=== PATIENT | male | born 1960 | race Hispanic/Latino ===

== ENCOUNTER 2016-11-22 11:08 | Day surgery (SDC) | payer BC, OTHER ==
[~2016-11-22 11:08] MED LIST: ANCEF/STERILE WATER 2 GM/20 ML IV NR
[2016-11-22 12:39] LABS: INR 2.45 (0.87-1.13)
[2016-11-22 12:40] LABS: Partial Thromboplastin Time 43.3 Sec. (24.2-36.6)
[2016-11-22] MEDS ORDERED: PERCOCET 5/325 PO PRN (12:51)
[2016-11-22] MEDS ORDERED: MORPHINE IV PRN (12:51)
[2016-11-22] MEDS ORDERED: ZOFRAN IV PRN (12:51)
--- NOTE | 2016-11-22 12:51 | Anesthesia Day of Surgery ---
Anesthesia Day of Surgery - Day of Surgery Patient Examined: Yes Patient H&P Reviewed: Yes Patient is NPO: Yes
--- NOTE | 2016-11-22 12:53 | Anesthesia Consultation ---
Anesthesia Consult and Med Hx Date of service: 11/22/16 - Airway Anesthetic Teeth Evaluation: Good ROM Head & Neck: Adequate Mental/Hyoid Distance: Adequate Mallampati Class: Class II Intubation Access Assessment: Probably Good - Pulmonary Exam CTA: Yes - Pre-Operative Health Status ASA Pre-Surgery Classification: ASA3 Proposed Anesthetic Plan: General - Pulmonary Hx Smoking: Yes (quit 20 yrs ago) Hx Asthma: No Hx Sleep Apnea: No - Cardiovascular System Hx Hypertension: Yes (RECENTLY DIAGNOSED 2015) Hx Peripheral Vascular Disease: Yes (h/o DVT on Warfarin, INR 2.45, Dr. Mcneill made aware) - Central Nervous System Hx Seizures: No CVA: No Hx Psychiatric Problems: No - Gastrointestinal Hx Ulcer: (Chron's Dz) Hx Gastroesophageal Reflux Disease: No - Endocrine Hx Renal Disease: (kidney stones) Hx Liver Disease: No Hx Non-Insulin Dependent Diabetes: No Hx Thyroid Disease: No Hx Hypothyroidism: No - Other Systems Hx Alcohol Use: Yes Hx Substance Use: No Hx Cancer: No Hx Obesity: No
[2016-11-22] MEDS ORDERED: PEPCID IV NR (13:00)
[2016-11-22] MEDS ORDERED: DILAUDID IV NR (13:00)
[2016-11-22] MEDS ORDERED: NACL 0.9% 1000 ML 1,000 ML IV SCH (13:00)
[2016-11-22] MEDS ORDERED: REGLAN IV NR (13:00)
[2016-11-22] MEDS ORDERED: VERSED IV NR (13:00)
[2016-11-22] MEDS ORDERED: PEPCID PO NR (13:00)
[2016-11-22] MEDS ORDERED: XYLOCAINE MPF 2% ONE (13:10)
[2016-11-22] MEDS ORDERED: SUBLIMAZE ONE (13:11)
[2016-11-22] MEDS ORDERED: DIPRIVAN 10 MG/ML IV ONE (13:11)
--- NOTE | 2016-11-22 13:20 | Post Operative Note ---
Date of procedure: 11/22/16 Pre-op diagnosis: left pain and ureteral stone Post-op diagnosis: same Findings: as above Procedure: cysto L j stent Anesthesia: GETA Surgeon: MARITZA LOPEZ Estimated blood loss: none Pathology: none Condition: stable Disposition: PACU
--- NOTE | 2016-11-22 13:22 | Discharge Summary ---
Short Stay Discharge Plan Activity: other (no straining ) Weight Bearing Status: Full Weight Bearing Diet: low fat, low cholesterol, low salt Special Instructions: other (inc fluids ) Durable Medical Equipment Needed Upon Discharge: other (has j stent ) Follow up with: PRIMARY CARE, [Primary Care Provider] - 7 Days MARITZA LOPEZ MD [Staff Physician] - 7 Days
[2016-11-22] MEDS ORDERED: ePHEDrine SULFATE ONE (13:44)
[2016-11-22] MEDS ORDERED: LASIX ONE (13:53)
[2016-11-22] MEDS ORDERED: ZOFRAN ONE ×2 (13:56→13:57)
[2016-11-22] MEDS ORDERED: DECADRON ONE (13:56)
--- NOTE | 2016-11-22 14:20 | Post Anesthesia Evaluation ---
- Post Anesthesia Evaluation Patient Participated: Yes Airway Patent: Yes Stable Respiratory Function: Yes Nausea/Vomiting: No Temp > 96.8F: Yes Pain Manageable: Yes Adequeate Hydration: Yes Anesthesia Complications: No
--- NOTE | 2016-11-22 15:07 | Operative Report ---
PREOPERATIVE DIAGNOSES: Large left distal ureteral stone with severe pain. POSTOPERATIVE DIAGNOSES: Large left distal ureteral stone with severe pain, with very high INR. PROCEDURE: Cystoscopy, left stent, staged procedure. SURGEON: Harry Mcneill MD ANESTHESIA: General. FINDINGS: This is a gentleman who presented with severe pain. He has a distal ureteral stone about 8-9 mm. We were planning to do lithotripsy, ureteroscopy, but his INR was almost 2.5. He has had a history of deep vein thrombosis. We told him that because of the INR, we did not feel comfortable doing lithotripsy and if it was over 2, we would just stage . DESCRIPTION OF PROCEDURE: The patient was brought to the operating room and placed on the operating table. Following induction of anesthesia, placed in lithotomy position, prepped and draped in usual sterile fashion. Cystourethroscopy showed a slightly enlarged prostate. No bladder tumors. Bladder was well visualized with 30-and 70-degree lenses. There was a little oozing from the prostate which was expected and a retrograde showed the stone in the lower ureter. A wire coiled in the kidney. We placed a 6-Nepali double J coiled in the kidney and bladder. The patient tolerated the procedure well. There was minimal bleeding. We did not want to take a chance. I talked to his and the patient. He was brought to recovery in stable condition for staged procedure for followup ureteroscopy and laser after the INR is improved. 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 JOB# [id number] NAHID/LAUREN
[2016-11-22 15:46] VITALS: BP 126/67
--- NOTE | 2016-11-22 21:26 | Admit Criteria Form ---
Admission Criteria Documentation: AMBULATORY SURGERY EXCEPTION CRITERIA Ambulatory Surgery Exception Criteria ( Place 'X' for any and all applicable criteria): Surgery or procedure performed on ambulatory basis may require inpatient stay for[A] ANY ONE of the following(1)(2)(3)(4)(5)(6)(7)(8)(9): [X] I. A preoperative situation, condition, or finding that warrants inpatient stay as indicated by ANY ONE of the following: [] a) Inpatient care needed because of severity of a disease or condition rather than the surgery (eg, severe cardiac or respiratory disease, severe infection) (15) (16 ) (17) (18) [] b) Emergent procedure (eg, angioplasty for acute ischemia)(19) [] c) Complex surgical approach or situation as indicated by ANY ONE of the following(3): [] i) Open approach needed instead of usual endoscopic, transcatheter, or other less invasive procedure [] ii) Difficult approach because of previous operation [] iii) Airway monitoring required after open neck procedures(20)(21) [] iv) Large mass requiring unusually extensive dissection [] v) Additional complicating feature requiring inpatient care (eg, drain management)(22(23): [X] d) Major surgery in a pt with high anesthetic risk as indicated by ANY ONE of the following (2)(3)(5)(7)(8): [X] i) ASA risk class III or higher (severe systemic disease impairing function) [D] [] ii) Advanced age (eg, older than 85 years)(14)(24) [] iii) Symptomatic heart failure(25) [] iv) Symptomatic asthma or COPD(8)(21) [] v) Morbid obesity with hemodynamic or respiratory problems(20)( 21)(26)(27) [] vi) Obstructive sleep apnea(20)(21) [] vii) Former premature infants who are younger than 60 weeks [] viii) High risk for severe postoperative abnormalities (eg, severe postoperative hypocalcemia after parathyroidectomy for severe hyperparathyroidism)(27)( 28) [] ix) Unstable angina(25) [] e) Drug-related risk requiring inpatient stay as indicated by ANY ONE of the following(5)(10)(14)(32)(33) [] i) Procedure requires discontinuing drugs or other therapy (eg , antiarrhythmic medication, antiseizure medication), which necessitates inpatient observation or treatment.(18)(31) [] ii) Major surgery and high risk drug use as indicated by ANY ONE of the following: [] 1) Active abuse of cocaine or similar drug [] 2) Monoamine oxidase inhibitor use [] 3) Other drug identified as posing risk [] f) Inadequate outpatient care situation as indicated by ANY ONE of the following(5)(10)(14)(32)(33) [] i) Patient lives remote from medical facility and procedure has urgent complication potential, and temporary nearby residence cannot be arranged [] ii) Patient will have postprocedure incapacitation and inadequate assistance at home, or alternative level of care cannot be arranged. [] iii) Patient will have long general anesthesia or procedure side effect resolution time, and competent person to stay with patient on first postoperative night at home or alternative level of care cannot be arranged. []iv) Other inadequate outpatient situation that cannot be handled by other means [] II. A perioperative event, condition, or finding that warrants inpatient stay as indicated by ANY ONE of the following (1)(2)(3): [] a) Inadequate physiologic recovery: cardiovascular, respiratory, or hemodynamic status not normal or near preoperative baseline(18) [] b) Hemodynamic instability [] c) Patient not alert with near normal or baseline mental status [] d) Temperature not normal or as expected and not appropriate for outpatient treatment of condition [] e) Ambulatory or appropriate activity level status not yet achieved post procedure [E](34)(35)(36) [] f) Operative site not appropriate (eg, unexpected or excessive drainage or bleeding) [] g) Postoperative effects not resolved or adequately managed (eg, significant pain or vomiting not appropriate for outpatient or next level of care)(10)(12) [] h) Complicating features requiring inpatient care as indicated by ANY ONE of the following(37): [] i) Severe complications of procedure (eg, bowel injury, airway compromise, vascular injury,severe hemorrhage) [] ii) Extensive (eg, dissection far beyond usual scope of procedure ) or prolonged (eg, 120 minutes beyond usual) surgery needed requiring inpatient postoperative care [] iii) Conversion to an open or complex procedure that requires inpatient care (eg, open vs laparoscopic cholecystectomy, abdominal vs vaginal hysterectomy)(38) [] iv) Comorbid condition or test result identified during or post procedure that requires inpatient care (7) [] v) Malignant hyperthermia(30) [] vi) Other complicating feature requiring inpatient care(22)(23) Inpatient stay may be needed until ALL of the following are present (1)(2)(3)(4) (5)(6)(10)(14)(33)(40): []a) Physiologic recovery: cardiovascular, respiratory, and hemodynamic status normal or near preoperative baseline []b) Hemodynamic stability []c) Patient alert, with near normal or baseline mental status []d) Temperature appropriate: patient afebrile or temperature appropriate for outpt treatment of condition []e) Activity level appropriate: ambulatory or appropriate activity level post procedure []f) Operative site appropriate as indicated by ALL of the following: []i) Site dry or with expected drainage []ii) Any blood noted is as expected for procedure. []g) Postoperative effects resolved or managed as indicated by ALL of the following: []i) Pain management appropriate for outpatient (or next level of) care(10) []ii) Minimal nausea and vomiting: if present, successfully treated with oral medication(12) []iii) Headache, dizziness, or drowsiness (if present) are mild. []h) Voiding status acceptable as indicated by ANY ONE of the following: []i) Voiding spontaneously []ii) No voiding but instructions given for follow-up in 6 to 8 hours []iii) Urinary catheter in place, and instructions given for follow-up []i) Complicating features requiring inpatient care manageable at a lower level of care(37) []j) Comorbid conditions manageable at a lower level of care(37) The original [employer] content created by [employer] has been revised. The portions of the content which have been revised are identified through the use of italic text or in bold, and [facility] [employer] has neither reviewed nor approved the modified material. All other unmodified content is copyright [employer]. Please see references footnoted in the original [employer] edition 2016 Admission Criteria Met: Yes
--- NOTE | 2016-11-23 14:50 | Fluoroscopy Report ---
FLUORO RETROGRADE UROGRAPHY INDICATION: Calculus of left kidney. COMPARISON: 09/28/2015. FINDINGS: 5 fluoroscopic images submitted. Images 1 and 2 likely superintendent local and suggests multiple, at least four left renal calculi measuring up to approximately 1 cm as also somewhat elongated, approximately 0.8 cm left hemipelvic calcification suspicious for left distal ureteral calculus as noted on 10/08/2005 CT. Ascending colon stool. Mild lumbar degenerative changes with L3-L4 disc narrowing. Subsequentially, left ureter cannulized and retrograde opacified with partial obstruction about the level of the left distal ureteral calculus with its smaller caliber beyond to the bladder base noted. Left proximal to mid visualized ureter appears unremarkable. Mild intrarenal collecting system fullness not entirely excluded. Final two images demonstrate placement of a left double-J ureteral stent with normal radiographic appearance. CONCLUSION: Intraoperative fluoroscopic assistance provided with various findings, as described. Please correlate. Thank you for the opportunity to participate in this patient's care.
== END 2016-11-22 16:05 | disposition home or self-care (01) ==
LOC: OR 11:08
PROVIDERS: ATTEND Urology
DX: N20.1 Calculus of ureter (principal); I10 Essential (primary) hypertension; N40.0 Benign prostatic hyperplasia without lower urinary tract symptoms; Z86.718 Personal history of other venous thrombosis and embolism; Z87.891 Personal history of nicotine dependence; Z87.19 Personal history of other diseases of the digestive system; Z72.89 Other problems related to lifestyle; Z79.01 Long term (current) use of anticoagulants
CPT/HCPCS: 36415; 52332; 74420; 85610; 85730; C1726; C1758; C1769; C2617; J0690; J1100; J1170; J1940; J2250; J2405; J2704; J2765; J3010; J7030; Q9967

== ENCOUNTER 2016-12-17 07:50 | Day surgery (SDC) | payer BC ==
--- NOTE | 2016-11-30 11:32 | Anesthesia Consultation ---
Anesthesia Consult and Med Hx - Pre-Operative Health Status Proposed Anesthetic Plan: General - Pulmonary Hx Smoking: Yes (quit 20 yrs ago) Hx Asthma: No Hx Sleep Apnea: No - Cardiovascular System Hx Hypertension: Yes (RECENTLY DIAGNOSED 2015) Hx Peripheral Vascular Disease: Yes (h/o DVT on Warfarin, INR 2.45, Dr. Mcneill made aware) - Central Nervous System Hx Seizures: No CVA: No Hx Psychiatric Problems: No - Gastrointestinal Hx Ulcer: No (Crohn's dz) Hx Gastroesophageal Reflux Disease: No - Endocrine Hx Renal Disease: (kidney stones) Hx Liver Disease: No Hx Non-Insulin Dependent Diabetes: No Hx Thyroid Disease: No Hx Hypothyroidism: No - Other Systems Hx Alcohol Use: Yes Hx Substance Use: No Hx Cancer: No Hx Obesity: No
[2016-12-14 12:21] LABS: Basophils % (Auto) 0.6 % (0.0-1.8); Eosinophils % (Auto) 1.4 % (0.0-4.3); Hematocrit 42.9 % (35.5-45.6); Hemoglobin 14.5 gm/dl (11.8-15.2); Mean Corpuscular HGB Conc 34 % (32-34); Mean Corpuscular Hemoglobin 32 pg (28-32); Mean Corpuscular Volume 93 fl (84-94); Platelet Count 220 K/mm3 (140-440); Red Cell Distribution Width 13.8 % (13.2-15.2); White Blood Count 4.6 K/mm3 (4.5-11.0)
[2016-12-14 12:30] LABS: INR 1.04 (0.87-1.13)
[2016-12-14 12:35] LABS: Alanine Aminotransferase 26 units/L (7-56); Albumin 4.1 g/dL (3.9-5); Albumin/Globulin Ratio 1.4 %; Alkaline Phosphatase 63 units/L (35-129); Anion Gap 18 mmol/L; BUN/Creatinine Ratio 16.66; Bilirubin,Total 0.6 mg/dL (0.1-1.2); Blood Urea Nitrogen 15 mg/dL (9-20); Calcium 9.3 mg/dL (8.4-10.2); Carbon Dioxide 22 mmol/L (22-30); Chloride 101.5 mmol/L (98-107); Glucose 106 mg/dL (75-100); Potassium 3.8 mmol/L (3.6-5.0); Sodium 138 mmol/L (137-145); Total Protein 7.1 g/dL (6.3-8.2)
[~2016-12-17 07:50] MED LIST changes: -ANCEF/STERILE WATER 2 GM/20 ML IV NR; +NACL 0.9% 1000 ML 1,000 ML IV SCH; +PEPCID IV NR; +VERSED IV NR
[2016-12-17] MEDS ORDERED: SUBLIMAZE IV PRN (09:08)
--- NOTE | 2016-12-17 09:21 | Anesthesia Day of Surgery ---
Anesthesia Day of Surgery - Day of Surgery Patient Examined: Yes (large roche) Patient H&P Reviewed: Yes Patient is NPO: Yes Beta Blockers: No Cardiac Clearance: No Pulmonary Clearance: No
[2016-12-17] MEDS ORDERED: ZOFRAN IV PRN (09:42)
[2016-12-17] MEDS ORDERED: NACL BACTERIOSTATIC INFILTRATI ONE (09:56)
[2016-12-17] MEDS ORDERED: NACL 0.9% 1000 ML 1,000 ML IV SCH (10:00)
[2016-12-17] MEDS ORDERED: XYLOCAINE MPF 2% ONE (10:14)
[2016-12-17] MEDS ORDERED: SUBLIMAZE ONE (10:14)
[2016-12-17] MEDS ORDERED: VERSED ONE (10:14)
[2016-12-17] MEDS ORDERED: DIPRIVAN 10 MG/ML IV ONE (10:15)
[2016-12-17] MEDS ORDERED: ANCEF/STERILE WATER 2 GM/20 ML IV NR (11:00)
[2016-12-17] MEDS ORDERED: OMNIPAQUE 300 MG/50 ML (CATH LAB) IV ONE (11:42)
[2016-12-17] MEDS ORDERED: WATER FOR IRRIG STERILE IR ONE (11:42)
[2016-12-17] MEDS ORDERED: ZOFRAN ONE (12:05)
[2016-12-17] MEDS ORDERED: ROBINUL ONE (12:43)
--- NOTE | 2016-12-17 12:57 | Operative Report ---
PREOPERATIVE DIAGNOSIS: Left distal large ureteral stone, approximately 7-8 mm with previously on Coumadin and high dose of Coumadin. POSTOPERATIVE DIAGNOSIS: Left distal large ureteral stone, approximately 7-8 mm with previously on Coumadin and high dose of Coumadin. PROCEDURE: Cystoscopy, left retrograde, left ureteroscopic laser, treatment of stone, extraction of stones. SURGEON: Harry Mcneill MD ANESTHESIA: General. FINDINGS: This is a gentleman with a large stone, he was on Coumadin. We placed a stent to get him out of pain and nausea. He now presents for treatment. DESCRIPTION OF PROCEDURE: The patient was brought to the operating room and placed on the operating table. Following induction of anesthesia, placed in lithotomy position, prepped and draped in usual sterile fashion. A stent was extracted from the meatus. A wire coiled in the kidney. At this point, we set up to laser, the wire came back down. We replaced the wire in good position and ureteroscopy showed the stone. The stone was too large to grasp. We tried to grasping it, too big, we broken it into about 7 pieces. Each piece was removed and left in the bladder at the end of the procedure. A 6-Hebrew double J coiled in the kidney and bladder. Retrograde showed good positioning of the stent. The patient tolerated the procedure well. Family was given the stone and was brought to recovery in stable condition. JOB# [id number] NAHID/LAUREN
--- NOTE | 2016-12-17 13:01 | Post Operative Note ---
Date of procedure: 12/17/16 Pre-op diagnosis: ureteral stone Post-op diagnosis: same Findings: 7mm stone Procedure: cysto laser ureteroscopy Anesthesia: LEAHA Surgeon: MARITZA LOPEZ Estimated blood loss: minimal Pathology: list (stone) Specimen disposition: given to patient/family Condition: stable Disposition: PACU
--- NOTE | 2016-12-17 13:03 | Discharge Summary ---
Short Stay Discharge Plan Activity: other (no straining ) Weight Bearing Status: Full Weight Bearing Diet: regular, low fat, low salt Special Instructions: other (do not pull string ) Follow up with: TRENT SCHROEDER JR, MD [Primary Care Provider] - 7 Days MARITZA LOPEZ MD [Staff Physician] - 7 Days
--- NOTE | 2016-12-17 14:02 | Post Anesthesia Evaluation ---
- Post Anesthesia Evaluation Patient Participated: No (pt resting comfortably) Airway Patent: No Stable Respiratory Function: Yes Nausea/Vomiting: No Temp > 96.8F: Yes Pain Manageable: Yes Adequeate Hydration: Yes Anesthesia Complications: No Block Receding Appropriately: Not Applicable Patient on Ventilator: No
--- NOTE | 2016-12-17 14:18 | Fluoroscopy Report ---
FLUOROSCOPY RETROGRADE UROGRAPHY HISTORY: Calculus in left kidney. FINDINGS: Bi Specialist film of the abdomen demonstrates a left ureteral stent which is in good position. The left stent was exchanged. Holmium laser was used to break up a left renal stone which was removed by graspers. Please correlate with the procedural report by Dr. Mcneill. IMPRESSION: Left ureteral stent exchange.
[2016-12-17 14:25] VITALS: BP 120/78
== END 2016-12-17 14:30 | disposition home or self-care (01) ==
LOC: OR 07:50
PROVIDERS: ATTEND Urology
DX: N20.1 Calculus of ureter (principal); I10 Essential (primary) hypertension; Z87.442 Personal history of urinary calculi; Z72.89 Other problems related to lifestyle; Z86.718 Personal history of other venous thrombosis and embolism; Z87.891 Personal history of nicotine dependence; Z79.01 Long term (current) use of anticoagulants
CPT/HCPCS: 36415; 52356; 74420; 80053; 85025; 85610; 85730; A4217; C1758; C1769; C2617; J0690; J2250; J2405; J2704; J3010; J7030; Q9967

== ENCOUNTER 2017-01-29 09:55 | Outpatient (CLI) | payer BC ==
--- NOTE | 2017-01-29 11:18 | Cat Scan Report ---
CT ABDOMEN AND PELVIS WITHOUT CONTRAST INDICATION: Flank pain, hematuria. COMPARISON: 10/08/2015 FINDINGS: Noncontrast abdomen and pelvis CT performed. LUNG BASES: Mild bibasilar groundglass atelectasis. Stable borderline/mild cardiomegaly. Right coronary light calcifications. Nonspecific distal esophageal wall thickening, not excluded for gastroesophageal reflux and/or hiatal hernia, amongst others. ABDOMEN: Please note that sensitivity to detect small visceral lesions is limited due to the absence of intravenous or oral contrast. Interval variation in size/number/appearance of bilateral renal calculi noted. 3 dominant radiopaque right renal calculi now seen, the largest most inferiorly approximately 6 mm, axial image 141, series 2. No right hydronephrosis. Left kidney again demonstrates renal calculi in its mid to lower aspect, the largest interpolar measuring 1.3 x 0.7 cm, axial image 151, series 2 while at least 2 additional more inferior calculi measure up to 0.8 cm each, axial images 177 and 165. Mild to moderate left hydronephrosis also again seen with new 1.1 x 0.8 cm left proximal ureteral calculi, axial image 192, series 2. Improved left perinephric and periureteral fat stranding. Grossly unremarkable unenhanced liver, gallbladder, pancreas, adrenals, nonaneurysmal abdominal aorta with few atherosclerotic calcifications and IVC. Small retroaortic component of a circumaortic left renal vein may again be noted. No ascites or size significant adenopathy. Stable spleen with somewhat lobulated contours posteroinferiorly and faint peripheral benign calcifications measuring up to 0.8 cm, axial image 76. Nonopacified GI tract evaluation limited, though grossly nonobstructive. Normal retrocecal appendix. Descending colon diverticulosis. Stable fat containing umbilical hernia with a transverse neck of 6 mm. PELVIS: Numerous sigmoid diverticuli without acute complication. Grossly unremarkable nonopacified rectum, urinary bladder, seminal vesicles and the prostate. No free fluid or significant adenopathy. Stable approximately 3 cm fat-containing left inguinal hernia. Mild lumbar dextroscoliosis apex about L2-L3. Multilevel lumbar spine degenerative spurring. Bilateral hip degenerative changes as well. CONCLUSION: 1. Bilateral nephrolithiasis again noted with some interval CT variation in the renal calculi, as detailed above. Mild to moderate left hydronephrosis again present with improved left perinephric stranding. A 1.1 x 0.8 cm left proximal ureteral calculus is new. Previous approximately 4 mm left distal ureteral calculus no longer identified in that location, likely passed in the interval. Please correlate. 2. Various other incidental findings, as above. Thank you for the opportunity to participate in this patient's care.
== END 2017-01-29 09:56 | disposition home or self-care (01) ==
LOC: CT 09:55
PROVIDERS: ATTEND Urology
DX: N20.2 Calculus of kidney with calculus of ureter (principal); N13.30 Unspecified hydronephrosis; K57.30 Diverticulosis of large intestine without perforation or abscess without bleeding; J98.11 Atelectasis; I25.10 Atherosclerotic heart disease of native coronary artery without angina pectoris; I70.0 Atherosclerosis of aorta; K42.9 Umbilical hernia without obstruction or gangrene; K44.9 Diaphragmatic hernia without obstruction or gangrene; M41.86 Other forms of scoliosis, lumbar region; M16.0 Bilateral primary osteoarthritis of hip
CPT/HCPCS: 74176